=== PATIENT | female | born 1950 | race Caucasian/White ===

== ENCOUNTER → 2017-02-11 | Outpatient (CLI) | payer MEDICARE ==
[~2017-02-11] MED LIST: ACHYD1T PO; DESV100T PO; THYR15TA PO
--- NOTE | 2017-02-11 16:07 | Diagnostic Imaging Report ---
INDICATION: Cough x1 month. FINDINGS: There is mild discoid atelectasis along the left lung base. There are no infiltrates or masses. The heart is not enlarged. There is no hilar adenopathy. There is no pulmonary edema. No pneumothorax or pleural effusions. IMPRESSION: 1. Mild discoid atelectasis in left lung base. The chest otherwise appears normal. Dictated by: Dictated on workstation # [id number]
== END ==
LOC: RAD 15:39
PROVIDERS: ATTEND Internal Medicine
DX: J98.11 Atelectasis (principal)
CPT/HCPCS: 71020

== ENCOUNTER 2019-04-02 09:26 | Emergency (ER) | payer MEDICARE, OTHER ==
[~2019-04-02] VITALS: Ht 162.6 cm; Wt 98.9 kg
--- OUTSIDE RECORDS SUMMARY | 2019-04-02 09:31 | XMS REPORT | Clinical Summary ---
Author Author User, [employer] Organization Farheen Kurtz DO, FACP Address Unknown Phone Allergies, Adverse Reactions, Alerts Allergy Name Reaction Description Start Date Severity Status Provider PENICILLIN Critical Active Farheen Kurtz SULFA Critical Active Farheen Kurtz Conditions or Problems Problem Name Problem Code Onset Date Status Entry Date Provider Comment Standard Description Annotate LYMPHEDEMA, SEVERE 457.1 Active Farheen Kurtz Other lymphedema HYPERGLYCEMIA, MILD 790.6 Correction Farheen Kurtz Other abnormal blood chemistry DIABETES MELLITUS, NONINSULIN DEPENDENT (NIDDM) 250.02 Active Farheen Kurtz Diabetes mellitus without mention of complication, type II or unspecified type, uncontrolled POLYARTHRALGIA 719.49 Resolved Farheen Kurtz Pain in joint involving multiple sites HYPOTHYROIDISM, PRIMARY 244.9 Active Farheen Kurtz Unspecified hypothyroidism ANEMIA NOS 285.9 Resolved Farheen Kurtz Anemia, unspecified UNSPECIFIED VITAMIN D DEFICIENCY 268.9 Active Farheen Kurtz Unspecified vitamin D deficiency MENOPAUSAL SYNDROME 627.0 Active Farheen Kurtz Premenopausal menorrhagia HYPERTRIGLYCERIDEMIA 272.1 Active Farheen Kurtz Pure hyperglyceridemia NEOPLASM, SKIN, UNCERTAIN BEHAVIOR 238.2 Resolved Farheen Kurtz Neoplasm of uncertain behavior of skin WELL WOMAN V70.0 Resolved Farheen Kurtz Routine general medical examination at a health care facility CANDIDIASIS OF UNSPECIFIED SITE 112.9 Resolved Farheen Kurtz Candidiasis of unspecified site VAGINAL DISCHARGE 623.5 Resolved Farheen Kurtz Leukorrhea, not specified as infective LEG PAIN, LEFT 729.5 Resolved Farheen Kurtz Pain in limb HYPERTENSION 401.1 Active Farheen Kurtz Benign essential hypertension HEALTH SCREENING V70.0 Resolved Farheen Kurtz Routine general medical examination at a health care facility DEPRESSION, ACUTE, RECURRENT 296.33 Active Farheen Kurtz Major depressive disorder, recurrent episode, severe degree, without mention of psychotic behavior ANXIETY 300.00 Active Farheen Kurtz Anxiety state, unspecified DYSPHAGIA, PHARYNGOESOPHAGEAL PHASE 787.24 Active Farheen Kurtz Dysphagia, pharyngoesophageal phase WELL WOMAN V70.0 Active Farheen Kurtz Routine general medical examination at a health care facility Medication List Medication Instructions Start Date Stop Date Generic Name NDC Status Provider Patient Instruction WELLBUTRIN SR 100 MG [id number] 1 PO BID BUPROPION HCL 11243638615 No Longer Active Farheen Kurtz NORVASC 5 MG TAB 1 PO QD AMLODIPINE BESYLATE 80303930307 Active Aiyana Minor COZAAR 100 MG TAB 1 PO daily [place] POTASSIUM 29659895565 Active Aiyana Minor CYTOMEL 25 MCG TABS 1 PO BID LIOTHYRONINE SODIUM 89619140768 No Longer Active Farheen Kurtz SYNTHROID 0.025 MG TAB 1 PO daily LEVOTHYROXINE SODIUM 40743193297 Active Aiyana Minor LISINOPRIL 20 MG TABS 1 PO daily LISINOPRIL 76492692208 No Longer Active Farheen Kurtz PREMARIN 0.625 MG/GM CREA apply 2 inch ribbon to outside of vagina BID ESTROGENS, CONJUGATED VAGINAL 08829367408 No Longer Active Farheen Kurtz CLOBETASOL PROPIONATE 0.05 % CREA apply 2 inch ribbon to affected area BID for 2 weeks CLOBETASOL PROPIONATE 73313313721 No Longer Active Farheen Kurtz NYSTATIN 636674 UNIT/GM POWD apply to affected area over cream BID for 7 days NYSTATIN 19304428739 No Longer Active Farheen Kurtz NYSTATIN 700963 UNIT/GM CREA apply to affected area BID for 7 days NYSTATIN 77114104586 No Longer Active Farheen Kurtz PRISTIQ 100 MG [id number] 1 po daily DESVENLAFAXINE SUCCINATE 19633998129 Active Aiyana Minor HYDROCHLOROTHIAZIDE 25 MG TABS 1 po daily HYDROCHLOROTHIAZIDE 58658857029 No Longer Active Farheen Kurtz VITAMIN D 1000 UNIT TABS 1 PO daily CHOLECALCIFEROL 23321789582 Active Farheen Kurtz Vital Signs Date Name Value Unit Range Description blood pressure, diastolic - 8462-4 82 mm[Hg] BP saba blood pressure, systolic - 8480-6 140 mm[Hg] BP sys pulse rate E&M - 8867-4 66 /min Heart rate respiratory rate E&M - 9279-1 14 /min Resp rate temperature E&M 97.6 [degF] Body temperature weight E&M - 3141-9 239 [lb_av] Weight Measured blood pressure, diastolic - 8462-4 80 mm[Hg] BP saba blood pressure, systolic - 8480-6 135 mm[Hg] BP sys pulse rate E&M - 8867-4 84 /min Heart rate respiratory rate E&M - 9279-1 14 /min Resp rate temperature E&M 98.6 [degF] Body temperature weight E&M - 3141-9 225 [lb_av] Weight Measured blood pressure, diastolic - 8462-4 80 mm[Hg] BP saba blood pressure, systolic - 8480-6 130 mm[Hg] BP sys pulse rate E&M - 8867-4 80 /min Heart rate respiratory rate E&M - 9279-1 14 /min Resp rate temperature E&M 98.6 [degF] Body temperature weight E&M - 3141-9 235 [lb_av] Weight Measured blood pressure, diastolic - 8462-4 102 mm[Hg] BP saba blood pressure, systolic - 8480-6 178 mm[Hg] BP sys pulse rate E&M - 8867-4 78 /min Heart rate respiratory rate E&M - 9279-1 14 /min Resp rate weight E&M - 3141-9 236 [lb_av] Weight Measured Diagnostic Results Date Name Value Unit Range Description Clinical Lists Update: CBC,CMP,Chol,Trig,TSH,Free T4 - Chemistry Estimated Glomerular Filtration Rate (calc) >60 mL/min/1.73m2 thyroid stimulating hormone, serum 2.71 u[iU]/mL glucose, plasma fasting 136 mg/dL alkaline phosphatase, serum 113 U/L sodium, serum 139 mmol/L urea nitrogen, blood 19 mg/dL triglyceride, serum, fasting 110 mg/dL calcium, serum 9.1 mg/dL bilirubin, serum, total 0.4 mg/dL chloride, serum 104 mmol/L alanine aminotransferase (SGPT), serum 48 U/L cholesterol, serum 193 mg/dL aspartate aminotransferase (SGOT), serum 21 U/L carbon dioxide, venous blood 31 mmol/L protein, total, serum 7.4 g/dL creatinine, serum 0.93 mg/dL potassium, serum 4.3 mmol/L thyroxine, serum, free 0.63 ng/dL albumin, serum 3.4 g/dL Clinical Lists Update: CBC,CMP,Chol,Trig,TSH,Free T4 - Hematology hemoglobin, blood 13.3 g/dL hematocrit, blood 40.6 % platelet count 314 10*3/mm3 erythrocyte (RBC) count 4.31 10*6/mm3 leukocyte count, blood 6.6 10*3/mm3 mean corpuscular volume, RBC 94.2 fL red blood cell distribution width 13.1 % Clinical Lists Update: CMP,TSH,Free T4,HgA1c,FLP - Chemistry protein, total, serum 7.6 g/dL LDL cholesterol, serum 119 mg/dL aspartate aminotransferase (SGOT), serum 23 U/L carbon dioxide, venous blood 31 mmol/L alanine aminotransferase (SGPT), serum 58 U/L cholesterol, serum 202 mg/dL bilirubin, serum, total 0.5 mg/dL chloride, serum 104 mmol/L triglyceride, serum, fasting 163 mg/dL calcium, serum 9.0 mg/dL sodium, serum 137 mmol/L urea nitrogen, blood 18 mg/dL glucose, plasma fasting 120 mg/dL alkaline phosphatase, serum 122 U/L Estimated Glomerular Filtration Rate (calc) >60 mL/min/1.73m2 albumin, serum 3.6 g/dL thyroxine, serum, free 0.74 ng/dL potassium, serum 4.1 mmol/L HDL cholesterol, serum 50 mg/dL hemoglobin A1C, blood, as % of total hemoglobin 6.3 % creatinine, serum 0.76 mg/dL thyroid stimulating hormone, serum 2.93 u[iU]/mL Clinical Lists Update: HgA1c - Chemistry hemoglobin A1C, blood, as % of total hemoglobin 6.6 % Encounters Code Encounter Date Provider Facility CPT-16313 Ofc Vst, Est Level IV 15:08:22 CDT Farheenvinh Kurtz DO, FACP CPT-89786 Ofc Vst, Est Level IV 16:43:03 CDT Farheenvinh Kurtz [facility] CPT-62938 Ofc Vst, Est Level IV 14:41:55 CDT Farheenvinh Kurtz DO, FACP CPT-45560 Ofc Vst, Est Level III 14:56:19 CDT Farheenvinh Kurtz DO, FACP CPT-64233 Ofc Vst, Est Level IV 10:33:24 CDT Farheenvinh Kurtz DO, FACP CPT-36820 Ofc Vst, Est Level III 15:54:09 CDT Farheenvinh Kurtz [facility] CPT-47212 Ofc Vst, Est Level III 14:27:53 CDT Farheenivnh Kurtz DO, FACP CPT-53524 Ofc Vst, Est Level III 15:17:49 CDT Farheen Kurtz DO, FACP CPT-31832 Ofc Vst, Est Level III 13:46:33 CDT Farheenvinh Kurtz [facility] CPT-58133 Ofc Vst, Est Level IV 11:31:14 SENIOR LOAN PROCESSOR Farheenvinh Kurtz DO, FACP CPT-74000 Ofc Vst, New Level IV 10:54:03 SENIOR LOAN PROCESSOR Farheen Kurtz DO, FACP Procedures Code Procedure Name Date Entry Date Standard Description CPT-87316 Preventive, Est, (40-64) 15:32:51 CDT CPT-40414 Preventive, Est, (40-64) 20:59:28 CDT CPT-92283 Preventive, Est, (40-64) 11:45:08 SENIOR LOAN PROCESSOR CPT-35092 Handling of specimen from office to lab 10:08:59 SENIOR LOAN PROCESSOR CPT-01772 Preventive, Est, (40-64) 10:08:59 SENIOR LOAN PROCESSOR
--- OUTSIDE RECORDS SUMMARY | 2019-04-02 09:31 | XMS REPORT | Clinical Summary ---
Author Author User, [employer] Organization Farheen Kurtz DO, FACP Address Unknown [...] Provider Patient Instruction WELLBUTRIN SR 100 MG [id number] 1 PO BID BUPROPION HCL 55814902967 No Longer Active Farheen Kurtz NORVASC 5 MG TAB 1 PO QD AMLODIPINE BESYLATE 36241350740 Active Aiyana Minor COZAAR 100 MG TAB 1 PO daily [place] POTASSIUM 74826177798 Active Aiyana Minor CYTOMEL 25 MCG TABS 1 PO BID LIOTHYRONINE SODIUM 87108404164 No Longer Active Farheen Kurtz SYNTHROID 0.025 MG TAB 1 PO daily LEVOTHYROXINE SODIUM 86509431507 Active Aiyana Minor LISINOPRIL 20 MG TABS 1 PO daily LISINOPRIL 04518514979 No Longer Active Farheen Kurtz PREMARIN 0.625 MG/GM CREA apply 2 inch ribbon to outside of vagina BID ESTROGENS, CONJUGATED VAGINAL 02299752552 No Longer Active Farheen Kurtz CLOBETASOL PROPIONATE 0.05 % CREA apply 2 inch ribbon to affected area BID for 2 weeks CLOBETASOL PROPIONATE 37402623194 No Longer Active Farheen Kurtz NYSTATIN 197935 UNIT/GM POWD apply to affected area over cream BID for 7 days NYSTATIN 20944538891 No Longer Active Farheen Kurtz NYSTATIN 577788 UNIT/GM CREA apply to affected area BID for 7 days NYSTATIN 02536365704 No Longer Active Farheen Kurtz PRISTIQ 100 MG [id number] 1 po daily DESVENLAFAXINE SUCCINATE 84131980540 Active Aiyana Minor HYDROCHLOROTHIAZIDE 25 MG TABS 1 po daily HYDROCHLOROTHIAZIDE 48086680428 No Longer Active Farheen Kurtz VITAMIN D 1000 UNIT TABS 1 PO daily CHOLECALCIFEROL 96379009806 Active Farheen Kurtz Vital Signs Date Name [...] % Encounters Code Encounter Date Provider Facility CPT-52406 Ofc Vst, Est Level IV 15:08:22 CDT Farheenvinh Kurtz DO, FACP CPT-82402 Ofc Vst, Est Level IV 16:43:03 CDT Farheenvinh Kurtz [facility] CPT-12670 Ofc Vst, Est Level IV 14:41:55 CDT Farheenvinh Kurtz DO, FACP CPT-62924 Ofc Vst, Est Level III 14:56:19 CDT Farheenvinh Kurtz DO, FACP CPT-34292 Ofc Vst, Est Level IV 10:33:24 CDT Farheenvinh Kurtz DO, FACP CPT-67337 Ofc Vst, Est Level III 15:54:09 CDT Farheenvinh Kurtz [facility] CPT-36875 Ofc Vst, Est Level III 14:27:53 CDT Farheenvinh Kutrz DO, FACP CPT-36750 Ofc Vst, Est Level III 15:17:49 CDT Farheen Kurtz DO, FACP CPT-25683 Ofc Vst, Est Level III 13:46:33 CDT Farheenvinh Kurtz [facility] CPT-53053 Ofc Vst, Est Level IV 11:31:14 MANAGER OF TRAINING AND DEVELOPMENT Farheenvinh Kurtz DO, FACP CPT-66078 Ofc Vst, New Level IV 10:54:03 MANAGER OF TRAINING AND DEVELOPMENT Farheen Kurtz DO, FACP Procedures Code Procedure Name Date Entry Date Standard Description CPT-51655 Preventive, Est, (40-64) 15:32:51 CDT CPT-68305 Preventive, Est, (40-64) 20:59:28 CDT CPT-34563 Preventive, Est, (40-64) 11:45:08 MANAGER OF TRAINING AND DEVELOPMENT CPT-00710 Handling of specimen from office to lab 10:08:59 MANAGER OF TRAINING AND DEVELOPMENT CPT-33439 Preventive, Est, (40-64) 10:08:59 MANAGER OF TRAINING AND DEVELOPMENT
--- OUTSIDE RECORDS SUMMARY | 2019-04-02 09:31 | XMS REPORT | Clinical Summary ---
Author Author User, [employer] Organization Farheen Kurtz DO, FACP Address Unknown [...] Provider Patient Instruction WELLBUTRIN SR 100 MG [id number] 1 PO BID BUPROPION HCL 06618950819 No Longer Active Farheen Kurtz NORVASC 5 MG TAB 1 PO QD AMLODIPINE BESYLATE 94894407584 Active Aiyana Minor COZAAR 100 MG TAB 1 PO daily [place] POTASSIUM 22913521920 Active Aiyana Minor CYTOMEL 25 MCG TABS 1 PO BID LIOTHYRONINE SODIUM 71577104250 No Longer Active Farheen Kurtz SYNTHROID 0.025 MG TAB 1 PO daily LEVOTHYROXINE SODIUM 52107381423 Active Aiyana Minor LISINOPRIL 20 MG TABS 1 PO daily LISINOPRIL 35334312028 No Longer Active Farheen Kurtz PREMARIN 0.625 MG/GM CREA apply 2 inch ribbon to outside of vagina BID ESTROGENS, CONJUGATED VAGINAL 80958585410 No Longer Active Farheen Kurtz CLOBETASOL PROPIONATE 0.05 % CREA apply 2 inch ribbon to affected area BID for 2 weeks CLOBETASOL PROPIONATE 71958790111 No Longer Active Farheen Kurtz NYSTATIN 982195 UNIT/GM POWD apply to affected area over cream BID for 7 days NYSTATIN 59753453602 No Longer Active Farheen Kurtz NYSTATIN 612261 UNIT/GM CREA apply to affected area BID for 7 days NYSTATIN 21843758458 No Longer Active Farheen Kurtz PRISTIQ 100 MG [id number] 1 po daily DESVENLAFAXINE SUCCINATE 94123951421 Active Aiyana Minor HYDROCHLOROTHIAZIDE 25 MG TABS 1 po daily HYDROCHLOROTHIAZIDE 07011411826 No Longer Active Farheen Kurtz VITAMIN D 1000 UNIT TABS 1 PO daily CHOLECALCIFEROL 84979789721 Active Farheen Kurtz Vital Signs Date Name [...] % Encounters Code Encounter Date Provider Facility CPT-82060 Ofc Vst, Est Level IV 15:08:22 CDT Farheenvinh Kurtz DO, FACP CPT-47826 Ofc Vst, Est Level IV 16:43:03 CDT Farheenvinh Kurtz [facility] CPT-52035 Ofc Vst, Est Level IV 14:41:55 CDT Farheenvinh Kurtz DO, FACP CPT-11798 Ofc Vst, Est Level III 14:56:19 CDT Farheenvinh Kurtz DO, FACP CPT-88330 Ofc Vst, Est Level IV 10:33:24 CDT Farheenvinh Kurtz DO, FACP CPT-12000 Ofc Vst, Est Level III 15:54:09 CDT Farheenvinh Kurtz [facility] CPT-60514 Ofc Vst, Est Level III 14:27:53 CDT Farheenvinh Kurtz DO, FACP CPT-73328 Ofc Vst, Est Level III 15:17:49 CDT Farheen Kurtz DO, FACP CPT-91706 Ofc Vst, Est Level III 13:46:33 CDT Farheenvinh Kurtz [facility] CPT-60617 Ofc Vst, Est Level IV 11:31:14 OPTOMETRIC TECHNOLOGIST Farheenvinh Kurtz DO, FACP CPT-25075 Ofc Vst, New Level IV 10:54:03 OPTOMETRIC TECHNOLOGIST Farheen Kurtz DO, FACP Procedures Code Procedure Name Date Entry Date Standard Description CPT-36279 Preventive, Est, (40-64) 15:32:51 CDT CPT-82196 Preventive, Est, (40-64) 20:59:28 CDT CPT-49690 Preventive, Est, (40-64) 11:45:08 OPTOMETRIC TECHNOLOGIST CPT-51856 Handling of specimen from office to lab 10:08:59 OPTOMETRIC TECHNOLOGIST CPT-61361 Preventive, Est, (40-64) 10:08:59 OPTOMETRIC TECHNOLOGIST
--- OUTSIDE RECORDS SUMMARY | 2019-04-02 09:32 | XMS REPORT | Clinical Summary ---
Author Author User, [employer] Organization Farheen Kurtz DO, FACP Address Unknown [...] Provider Patient Instruction WELLBUTRIN SR 100 MG [id number] 1 PO BID BUPROPION HCL 08267314525 No Longer Active Farheen Kurtz NORVASC 5 MG TAB 1 PO QD AMLODIPINE BESYLATE 43729283865 Active Aiyana Minor COZAAR 100 MG TAB 1 PO daily [place] POTASSIUM 48010350624 Active Aiyana Minor CYTOMEL 25 MCG TABS 1 PO BID LIOTHYRONINE SODIUM 57781918815 No Longer Active Farheen Kurtz SYNTHROID 0.025 MG TAB 1 PO daily LEVOTHYROXINE SODIUM 40405954689 Active Aiyana Minor LISINOPRIL 20 MG TABS 1 PO daily LISINOPRIL 39753935227 No Longer Active Farheen Kurtz PREMARIN 0.625 MG/GM CREA apply 2 inch ribbon to outside of vagina BID ESTROGENS, CONJUGATED VAGINAL 99790116958 No Longer Active Farheen Kurtz CLOBETASOL PROPIONATE 0.05 % CREA apply 2 inch ribbon to affected area BID for 2 weeks CLOBETASOL PROPIONATE 27379611471 No Longer Active Farheen Kurtz NYSTATIN 644209 UNIT/GM POWD apply to affected area over cream BID for 7 days NYSTATIN 72107631473 No Longer Active Farheen Kurtz NYSTATIN 661418 UNIT/GM CREA apply to affected area BID for 7 days NYSTATIN 67297888645 No Longer Active Farheen Kurtz PRISTIQ 100 MG [id number] 1 po daily DESVENLAFAXINE SUCCINATE 59706108315 Active Aiyana Minor HYDROCHLOROTHIAZIDE 25 MG TABS 1 po daily HYDROCHLOROTHIAZIDE 08576582495 No Longer Active Farheen Kurtz VITAMIN D 1000 UNIT TABS 1 PO daily CHOLECALCIFEROL 24206116914 Active Farheen Kurtz Vital Signs Date Name [...] % Encounters Code Encounter Date Provider Facility CPT-25592 Ofc Vst, Est Level IV 15:08:22 CDT Farheenvinh Kurtz DO, FACP CPT-38045 Ofc Vst, Est Level IV 16:43:03 CDT Farheenvinh Kurtz [facility] CPT-47273 Ofc Vst, Est Level IV 14:41:55 CDT Farheenvinh Kurtz DO, FACP CPT-94471 Ofc Vst, Est Level III 14:56:19 CDT Farheenvinh Kurtz DO, FACP CPT-08731 Ofc Vst, Est Level IV 10:33:24 CDT Farheenvinh Kurtz DO, FACP CPT-41278 Ofc Vst, Est Level III 15:54:09 CDT Farheenvinh Kurtz [place] [facility] CPT-02854 Ofc Vst, Est Level III 14:27:53 CDT Farheenvinh Kurtz DO, FACP CPT-17523 Ofc Vst, Est Level III 15:17:49 CDT Farheen Kurtz DO, FACP CPT-96686 Ofc Vst, Est Level III 13:46:33 CDT Farheenvinh Kurtz [facility] CPT-10873 Ofc Vst, Est Level IV 11:31:14 MEDIA SALES EXECUTIVE Farheenvinh Kurtz DO, FACP CPT-40999 Ofc Vst, New Level IV 10:54:03 MEDIA SALES EXECUTIVE Farheen Kurtz DO, FACP Procedures Code Procedure Name Date Entry Date Standard Description CPT-92022 Preventive, Est, (40-64) 15:32:51 CDT CPT-45405 Preventive, Est, (40-64) 20:59:28 CDT CPT-43247 Preventive, Est, (40-64) 11:45:08 MEDIA SALES EXECUTIVE CPT-67372 Handling of specimen from office to lab 10:08:59 MEDIA SALES EXECUTIVE CPT-89827 Preventive, Est, (40-64) 10:08:59 MEDIA SALES EXECUTIVE
--- OUTSIDE RECORDS SUMMARY | 2019-04-02 09:32 | XMS REPORT | Clinical Summary ---
Author Author User, [employer] Organization Farheen Kurtz DO, FACP Address Unknown [...] Provider Patient Instruction WELLBUTRIN SR 100 MG [id number] 1 PO BID BUPROPION HCL 98482032892 No Longer Active Farheen Kurtz NORVASC 5 MG TAB 1 PO QD AMLODIPINE BESYLATE 80225016684 Active Aiyana Minor COZAAR 100 MG TAB 1 PO daily [place] POTASSIUM 02332720132 Active Aiyana Minor CYTOMEL 25 MCG TABS 1 PO BID LIOTHYRONINE SODIUM 05096640007 No Longer Active Farheen Kurtz SYNTHROID 0.025 MG TAB 1 PO daily LEVOTHYROXINE SODIUM 77315662021 Active iAyana Minor LISINOPRIL 20 MG TABS 1 PO daily LISINOPRIL 85562412345 No Longer Active Farheen Kurtz PREMARIN 0.625 MG/GM CREA apply 2 inch ribbon to outside of vagina BID ESTROGENS, CONJUGATED VAGINAL 56509648210 No Longer Active Farheen Kurtz CLOBETASOL PROPIONATE 0.05 % CREA apply 2 inch ribbon to affected area BID for 2 weeks CLOBETASOL PROPIONATE 49566513490 No Longer Active Farheen Kurtz NYSTATIN 277531 UNIT/GM POWD apply to affected area over cream BID for 7 days NYSTATIN 76162598384 No Longer Active Farheen Kurtz NYSTATIN 341536 UNIT/GM CREA apply to affected area BID for 7 days NYSTATIN 13269293466 No Longer Active Farheen Kurtz PRISTIQ 100 MG [id number] 1 po daily DESVENLAFAXINE SUCCINATE 53295661226 Active Aiyana Minor HYDROCHLOROTHIAZIDE 25 MG TABS 1 po daily HYDROCHLOROTHIAZIDE 26508425335 No Longer Active Farheen Kurtz VITAMIN D 1000 UNIT TABS 1 PO daily CHOLECALCIFEROL 65489041292 Active Farheen Kurtz Vital Signs Date Name [...] % Encounters Code Encounter Date Provider Facility CPT-07698 Ofc Vst, Est Level IV 15:08:22 CDT Farheenvinh Kurtz DO, FACP CPT-38279 Ofc Vst, Est Level IV 16:43:03 CDT Farheenvinh Kurtz [facility] CPT-02965 Ofc Vst, Est Level IV 14:41:55 CDT Farheenvinh Kurtz DO, FACP CPT-25914 Ofc Vst, Est Level III 14:56:19 CDT Farheenvinh Kurtz DO, FACP CPT-68145 Ofc Vst, Est Level IV 10:33:24 CDT Farheenvinh Kurtz DO, FACP CPT-73642 Ofc Vst, Est Level III 15:54:09 CDT Farheenvinh Kurtz [facility] [place] [facility] CPT-41332 Ofc Vst, Est Level III 14:27:53 CDT Farheenvinh Kurtz DO, FACP CPT-63453 Ofc Vst, Est Level III 15:17:49 CDT Farheen Kurtz DO, FACP CPT-18608 Ofc Vst, Est Level III 13:46:33 CDT Farheenvinh Kurtz [facility] CPT-53758 Ofc Vst, Est Level IV 11:31:14 LOAN AND CREDIT MANAGER Farheenvinh Kurtz DO, FACP CPT-41411 Ofc Vst, New Level IV 10:54:03 LOAN AND CREDIT MANAGER Farheen Kurtz DO, FACP Procedures Code Procedure Name Date Entry Date Standard Description CPT-83186 Preventive, Est, (40-64) 15:32:51 CDT CPT-37033 Preventive, Est, (40-64) 20:59:28 CDT CPT-60834 Preventive, Est, (40-64) 11:45:08 LOAN AND CREDIT MANAGER CPT-32845 Handling of specimen from office to lab 10:08:59 LOAN AND CREDIT MANAGER CPT-03152 Preventive, Est, (40-64) 10:08:59 LOAN AND CREDIT MANAGER
--- OUTSIDE RECORDS SUMMARY | 2019-04-02 09:32 | XMS REPORT | Clinical Summary ---
Author Author User, [employer] Organization Farheen Kurtz DO, FACP Address Unknown [...] Kurtz Premenopausal menorrhagia HYPERTRIGLYCERIDEMIA 272.1 Active Farheen uKrtz Pure hyperglyceridemia NEOPLASM, SKIN, UNCERTAIN BEHAVIOR 238.2 [...] Provider Patient Instruction WELLBUTRIN SR 100 MG [id number] 1 PO BID BUPROPION HCL 38269491244 No Longer Active Farheen Kurtz NORVASC 5 MG TAB 1 PO QD AMLODIPINE BESYLATE 95205299060 Active Aiyana Minor COZAAR 100 MG TAB 1 PO daily [place] POTASSIUM 50199372422 Active Aiyana Minor CYTOMEL 25 MCG TABS 1 PO BID LIOTHYRONINE SODIUM 40574852333 No Longer Active Farheen Kurtz SYNTHROID 0.025 MG TAB 1 PO daily LEVOTHYROXINE SODIUM 00629742852 Active Aiyana Minor LISINOPRIL 20 MG TABS 1 PO daily LISINOPRIL 89505623125 No Longer Active Farheen Kurtz PREMARIN 0.625 MG/GM CREA apply 2 inch ribbon to outside of vagina BID ESTROGENS, CONJUGATED VAGINAL 29785638090 No Longer Active Farheen Kurtz CLOBETASOL PROPIONATE 0.05 % CREA apply 2 inch ribbon to affected area BID for 2 weeks CLOBETASOL PROPIONATE 56067257532 No Longer Active Farheen Kurtz NYSTATIN 470690 UNIT/GM POWD apply to affected area over cream BID for 7 days NYSTATIN 19381243096 No Longer Active Farheen Kurtz NYSTATIN 926091 UNIT/GM CREA apply to affected area BID for 7 days NYSTATIN 98846291107 No Longer Active Farheen Kurtz PRISTIQ 100 MG [id number] 1 po daily DESVENLAFAXINE SUCCINATE 65013720657 Active Aiyana Minor HYDROCHLOROTHIAZIDE 25 MG TABS 1 po daily HYDROCHLOROTHIAZIDE 81228858933 No Longer Active Farheen Kurtz VITAMIN D 1000 UNIT TABS 1 PO daily CHOLECALCIFEROL 64599130564 Active Farheen Kurtz Vital Signs Date Name [...] % Encounters Code Encounter Date Provider Facility CPT-42031 Ofc Vst, Est Level IV 15:08:22 CDT Farheenvinh Kurtz DO, FACP CPT-05276 Ofc Vst, Est Level IV 16:43:03 CDT Farheenvinh Kurtz [facility] CPT-62229 Ofc Vst, Est Level IV 14:41:55 CDT Farheenvinh Kurtz DO, FACP CPT-47856 Ofc Vst, Est Level III 14:56:19 CDT Farheenvinh Kurtz DO, FACP CPT-57272 Ofc Vst, Est Level IV 10:33:24 CDT Farheenvinh Kurtz DO, FACP CPT-73245 Ofc Vst, Est Level III 15:54:09 CDT Farheenvinh Kurtz [place] [facility] CPT-18130 Ofc Vst, Est Level III 14:27:53 CDT Farheenvinh Kurtz DO, FACP CPT-97817 Ofc Vst, Est Level III 15:17:49 CDT Farheen Kurtz DO, FACP CPT-01576 Ofc Vst, Est Level III 13:46:33 CDT Farheenvinh Kurtz [facility] CPT-01487 Ofc Vst, Est Level IV 11:31:14 FINANCIAL HEALTH COUNSELOR Farheenvinh Kurtz DO, FACP CPT-85066 Ofc Vst, New Level IV 10:54:03 FINANCIAL HEALTH COUNSELOR Farheen Kurtz DO, FACP Procedures Code Procedure Name Date Entry Date Standard Description CPT-34545 Preventive, Est, (40-64) 15:32:51 CDT CPT-59740 Preventive, Est, (40-64) 20:59:28 CDT CPT-10846 Preventive, Est, (40-64) 11:45:08 FINANCIAL HEALTH COUNSELOR CPT-60933 Handling of specimen from office to lab 10:08:59 FINANCIAL HEALTH COUNSELOR CPT-74479 Preventive, Est, (40-64) 10:08:59 FINANCIAL HEALTH COUNSELOR
--- OUTSIDE RECORDS SUMMARY | 2019-04-02 09:32 | XMS REPORT | Clinical Summary ---
Author Author User, [employer] Organization Farheen Kurtz DO, FACP Address Unknown [...] Farheen Kurtz Premenopausal menorrhagia HYPERTRIGLYCERIDEMIA 272.1 Active Farhene Kurtz Pure hyperglyceridemia NEOPLASM, SKIN, UNCERTAIN BEHAVIOR [...] Provider Patient Instruction WELLBUTRIN SR 100 MG [id number] 1 PO BID BUPROPION HCL 65061534741 No Longer Active Farheen Kurtz NORVASC 5 MG TAB 1 PO QD AMLODIPINE BESYLATE 67748637171 Active Aiyana Minor COZAAR 100 MG TAB 1 PO daily LOSARTAN POTASSIUM 96657339678 Active Aiyana Minor CYTOMEL 25 MCG TABS 1 PO BID LIOTHYRONINE SODIUM 65028887693 No Longer Active Farheen Kurtz SYNTHROID 0.025 MG TAB 1 PO daily LEVOTHYROXINE SODIUM 44424214412 Active Aiyana Minor LISINOPRIL 20 MG TABS 1 PO daily LISINOPRIL 46555468860 No Longer Active Farheen Kurtz PREMARIN 0.625 MG/GM CREA apply 2 inch ribbon to outside of vagina BID ESTROGENS, CONJUGATED VAGINAL 93081975676 No Longer Active Farheen Kurtz CLOBETASOL PROPIONATE 0.05 % CREA apply 2 inch ribbon to affected area BID for 2 weeks CLOBETASOL PROPIONATE 85156635633 No Longer Active Farheen Kurtz NYSTATIN 381218 UNIT/GM POWD apply to affected area over cream BID for 7 days NYSTATIN 78119872559 No Longer Active Farheen Kurtz NYSTATIN 322737 UNIT/GM CREA apply to affected area BID for 7 days NYSTATIN 42940726208 No Longer Active Farheen Kurtz PRISTIQ 100 MG [id number] 1 po daily DESVENLAFAXINE SUCCINATE 03250018672 Active Aiyana Minor HYDROCHLOROTHIAZIDE 25 MG TABS 1 po daily HYDROCHLOROTHIAZIDE 26461381906 No Longer Active Farheen Kurtz VITAMIN D 1000 UNIT TABS 1 PO daily CHOLECALCIFEROL 83013266875 Active Farheen Kurtz Vital Signs Date Name [...] % Encounters Code Encounter Date Provider Facility CPT-10748 Ofc Vst, Est Level IV 15:08:22 CDT Farheenvinh Kurtz DO, FACP CPT-28509 Ofc Vst, Est Level IV 16:43:03 CDT Far[facility]envinh [facility] CPT-72098 Ofc Vst, Est Level IV 14:41:55 CDT Farheenvinh Kurtz DO, FACP CPT-07024 Ofc Vst, Est Level III 14:56:19 CDT Farheenvinh Kurtz DO, FACP CPT-69853 Ofc Vst, Est Level IV 10:33:24 CDT Farheenvinh Kurtz DO, FACP CPT-12896 Ofc Vst, Est Level III 15:54:09 CDT Farheenvinh Kurtz [place] [facility] CPT-44610 Ofc Vst, Est Level III 14:27:53 CDT Farheenvinh Kurtz DO, FACP CPT-66098 Ofc Vst, Est Level III 15:17:49 CDT Farheen Kurtz DO, FACP CPT-38585 Ofc Vst, Est Level III 13:46:33 CDT Far[facility]envinh [facility] CPT-69268 Ofc Vst, Est Level IV 11:31:14 SERVICE STATION C[employer]IER Farheenvinh Kurtz DO, FACP CPT-65386 Ofc Vst, New Level IV 10:54:03 SERVICE STATION CASHIER Farheen Kurtz DO, FACP Procedures Code Procedure Name Date Entry Date Standard Description CPT-30447 Preventive, Est, (40-64) 15:32:51 CDT CPT-45542 Preventive, Est, (40-64) 20:59:28 CDT CPT-33474 Preventive, Est, (40-64) 11:45:08 SERVICE STATION CASHIER CPT-28942 Handling of specimen from office to lab 10:08:59 SERVICE STATION CASHIER CPT-06780 Preventive, Est, (40-64) 10:08:59 SERVICE STATION CASHIER
--- OUTSIDE RECORDS SUMMARY | 2019-04-02 09:33 | XMS REPORT | Clinical Summary ---
Author Author User, [employer] Organization Farheen Kurtz DO, FACP Address Unknown [...] Provider Patient Instruction WELLBUTRIN SR 100 MG [id number] 1 PO BID BUPROPION HCL 40551381684 No Longer Active Farheen Kurtz NORVASC 5 MG TAB 1 PO QD AMLODIPINE BESYLATE 32548991752 Active Aiyana Minor COZAAR 100 MG TAB 1 PO daily LOSARTAN POTASSIUM 34085602487 Active Aiyana Minor CYTOMEL 25 MCG TABS 1 PO BID LIOTHYRONINE SODIUM 41189298371 No Longer Active Farheen Kurtz SYNTHROID 0.025 MG TAB 1 PO daily LEVOTHYROXINE SODIUM 76974826521 Active Aiyana Minor LISINOPRIL 20 MG TABS 1 PO daily LISINOPRIL 20602470662 No Longer Active Farheen Kurtz PREMARIN 0.625 MG/GM CREA apply 2 inch ribbon to outside of vagina BID ESTROGENS, CONJUGATED VAGINAL 70374249875 No Longer Active Farheen Kurtz CLOBETASOL PROPIONATE 0.05 % CREA apply 2 inch ribbon to affected area BID for 2 weeks CLOBETASOL PROPIONATE 07049616546 No Longer Active Farheen Kurtz NYSTATIN 986197 UNIT/GM POWD apply to affected area over cream BID for 7 days NYSTATIN 05538522710 No Longer Active Farheen Kurtz NYSTATIN 675402 UNIT/GM CREA apply to affected area BID for 7 days NYSTATIN 36433012034 No Longer Active Farheen Kurtz PRISTIQ 100 MG [id number] 1 po daily DESVENLAFAXINE SUCCINATE 35844153468 Active Aiyana Minor HYDROCHLOROTHIAZIDE 25 MG TABS 1 po daily HYDROCHLOROTHIAZIDE 09634460029 No Longer Active Farheen Kurtz VITAMIN D 1000 UNIT TABS 1 PO daily CHOLECALCIFEROL 38734795487 Active Farheen Kurtz Vital Signs Date Name [...] % Encounters Code Encounter Date Provider Facility CPT-02882 Ofc Vst, Est Level IV 15:08:22 CDT Farheenvinh Kurtz DO, FACP CPT-38703 Ofc Vst, Est Level IV 16:43:03 CDT [facility]vinh [facility] CPT-37379 Ofc Vst, Est Level IV 14:41:55 CDT Farheenvinh Kurtz DO, FACP CPT-25906 Ofc Vst, Est Level III 14:56:19 CDT Farheenvinh Kurtz DO, FACP CPT-88197 Ofc Vst, Est Level IV 10:33:24 CDT Farheenvinh Kurtz DO, FACP CPT-75198 Ofc Vst, Est Level III 15:54:09 CDT Farheenvinh Kurtz [facility] CPT-83763 Ofc Vst, Est Level III 14:27:53 CDT Farheenvinh Kurtz DO, FACP CPT-38970 Ofc Vst, Est Level III 15:17:49 CDT Farheen Kurtz DO, FACP CPT-59140 Ofc Vst, Est Level III 13:46:33 CDT Far[facility]envinh Kurt[facility] CPT-58095 Ofc Vst, Est Level IV 11:31:14 ORNAMENT SETTER Farheenvinh Kurtz DO, FACP CPT-40953 Ofc Vst, New Level IV 10:54:03 ORNAMENT SETTER Farheen Kurtz DO, FACP Procedures Code Procedure Name Date Entry Date Standard Description CPT-31382 Preventive, Est, (40-64) 15:32:51 CDT CPT-14377 Preventive, Est, (40-64) 20:59:28 CDT CPT-24937 Preventive, Est, (40-64) 11:45:08 ORNAMENT SETTER CPT-69880 Handling of specimen from office to lab 10:08:59 ORNAMENT SETTER CPT-89279 Preventive, Est, (40-64) 10:08:59 ORNAMENT SETTER
--- OUTSIDE RECORDS SUMMARY | 2019-04-02 09:33 | XMS REPORT | Clinical Summary ---
Author Author User, [employer] Organization Farheen Kurtz DO, FACP Address Unknown [...] Provider Patient Instruction WELLBUTRIN SR 100 MG [id number] 1 PO BID BUPROPION HCL 81373883592 No Longer Active Farheen Kurtz NORVASC 5 MG TAB 1 PO QD AMLODIPINE BESYLATE 99379659862 Active Aiyana Minor COZAAR 100 MG TAB 1 PO daily LOSARTAN POTASSIUM 76336198530 Active Aiyana Minor CYTOMEL 25 MCG TABS 1 PO BID LIOTHYRONINE SODIUM 61401265734 No Longer Active Farheen Kurtz SYNTHROID 0.025 MG TAB 1 PO daily LEVOTHYROXINE SODIUM 23751303732 Active Aiyana Minor LISINOPRIL 20 MG TABS 1 PO daily LISINOPRIL 08934365344 No Longer Active Farheen Kurtz PREMARIN 0.625 MG/GM CREA apply 2 inch ribbon to outside of vagina BID ESTROGENS, CONJUGATED VAGINAL 03592633404 No Longer Active Farheen Kurtz CLOBETASOL PROPIONATE 0.05 % CREA apply 2 inch ribbon to affected area BID for 2 weeks CLOBETASOL PROPIONATE 54755192388 No Longer Active Farheen Kurtz NYSTATIN 973585 UNIT/GM POWD apply to affected area over cream BID for 7 days NYSTATIN 04894263160 No Longer Active Farheen Kurtz NYSTATIN 528002 UNIT/GM CREA apply to affected area BID for 7 days NYSTATIN 40111668929 No Longer Active Farheen Kurtz PRISTIQ 100 MG [id number] 1 po daily DESVENLAFAXINE SUCCINATE 10925888627 Active Aiyana Minor HYDROCHLOROTHIAZIDE 25 MG TABS 1 po daily HYDROCHLOROTHIAZIDE 44079298606 No Longer Active Farheen Kurtz VITAMIN D 1000 UNIT TABS 1 PO daily CHOLECALCIFEROL 81336206138 Active Farheen Kurtz Vital Signs Date Name [...] Clinical Lists Update: CBC,CMP,Chol,Trig,TSH,Free T4 - Chemistry albumin, serum 3.4 g/dL Estimated Glomerular Filtration Rate (calc) >60 mL/min/1.73m2 urea nitrogen, blood 19 mg/dL calcium, serum 9.1 mg/dL chloride, serum 104 mmol/L cholesterol, serum 193 mg/dL carbon dioxide, venous blood 31 mmol/L creatinine, serum 0.93 mg/dL thyroxine, serum, free 0.63 ng/dL thyroid stimulating hormone, serum 2.71 u[iU]/mL potassium, serum 4.3 mmol/L protein, total, serum 7.4 g/dL aspartate aminotransferase (SGOT), serum 21 U/L alanine aminotransferase (SGPT), serum 48 U/L bilirubin, serum, total 0.4 mg/dL triglyceride, serum, fasting 110 mg/dL sodium, serum 139 mmol/L glucose, plasma fasting 136 mg/dL alkaline phosphatase, serum 113 U/L Clinical Lists Update: CBC,CMP,Chol,Trig,TSH,Free T4 - Hematology hemoglobin, blood 13.3 g/dL hematocrit, blood 40.6 % platelet count 314 10*3/mm3 erythrocyte (RBC) count 4.31 10*6/mm3 leukocyte count, blood 6.6 10*3/mm3 mean corpuscular volume, RBC 94.2 fL red blood cell distribution width 13.1 % Clinical Lists Update: CMP,TSH,Free T4,HgA1c,FLP - Chemistry carbon dioxide, venous blood 31 mmol/L urea nitrogen, blood 18 mg/dL thyroxine, serum, free 0.74 ng/dL HDL cholesterol, serum 50 mg/dL hemoglobin A1C, blood, as % of total hemoglobin 6.3 % thyroid stimulating hormone, serum 2.93 u[iU]/mL LDL cholesterol, serum 119 mg/dL potassium, serum 4.1 mmol/L protein, total, serum 7.6 g/dL aspartate aminotransferase (SGOT), serum 23 U/L alanine aminotransferase (SGPT), serum 58 U/L bilirubin, serum, total 0.5 mg/dL triglyceride, serum, fasting 163 mg/dL sodium, serum 137 mmol/L glucose, plasma fasting 120 mg/dL Estimated Glomerular Filtration Rate (calc) >60 mL/min/1.73m2 cholesterol, serum 202 mg/dL chloride, serum 104 mmol/L calcium, serum 9.0 mg/dL creatinine, serum 0.76 mg/dL albumin, serum 3.6 g/dL alkaline phosphatase, serum 122 U/L Clinical Lists Update: HgA1c - Chemistry hemoglobin A1C, blood, as % of total hemoglobin 6.6 % Encounters Code Encounter Date Provider Facility CPT-84463 Ofc Vst, Est Level IV 15:08:22 CDT Farheenvinh Kurtz DO, FACP CPT-90088 Ofc Vst, Est Level IV 16:43:03 CDT Farheenvinh Kurtz [facility] CPT-36849 Ofc Vst, Est Level IV 14:41:55 CDT Farheenvinh Kurtz DO, FACP CPT-94360 Ofc Vst, Est Level III 14:56:19 CDT Farheenvinh Kurtz DO, FACP CPT-00232 Ofc Vst, Est Level IV 10:33:24 CDT Farheenvinh Kurtz DO, FACP CPT-71141 Ofc Vst, Est Level III 15:54:09 CDT Farheenvinh Kurtz [facility] CPT-79904 Ofc Vst, Est Level III 14:27:53 CDT Farheenvinh Kurtz DO, FACP CPT-93759 Ofc Vst, Est Level III 15:17:49 CDT Farheen Kurtz DO, FACP CPT-71138 Ofc Vst, Est Level III 13:46:33 CDT Far[facility]envinh Kurt[facility] CPT-63399 Ofc Vst, Est Level IV 11:31:14 ELECTRO MECHANICAL ASSEMBLER Farheenvinh Kurtz DO, FACP CPT-09102 Ofc Vst, New Level IV 10:54:03 ELECTRO MECHANICAL ASSEMBLER Farheen Kurtz DO, FACP Procedures Code Procedure Name Date Entry Date Standard Description CPT-15559 Preventive, Est, (40-64) 15:32:51 CDT CPT-89557 Preventive, Est, (40-64) 20:59:28 CDT CPT-55124 Preventive, Est, (40-64) 11:45:08 ELECTRO MECHANICAL ASSEMBLER CPT-52519 Handling of specimen from office to lab 10:08:59 ELECTRO MECHANICAL ASSEMBLER CPT-52890 Preventive, Est, (40-64) 10:08:59 ELECTRO MECHANICAL ASSEMBLER
--- OUTSIDE RECORDS SUMMARY | 2019-04-02 09:33 | XMS REPORT | Clinical Summary ---
Author Author User, [employer] Organization Farheen Kurtz DO, FACP Address Unknown [...] Provider Patient Instruction WELLBUTRIN SR 100 MG [id number] 1 PO BID BUPROPION HCL 43165843890 No Longer Active Farheen Kurtz NORVASC 5 MG TAB 1 PO QD AMLODIPINE BESYLATE 28874776646 Active Aiyana Minor COZAAR 100 MG TAB 1 PO daily LOSARTAN POTASSIUM 97305341110 Active Aiyana Minor CYTOMEL 25 MCG TABS 1 PO BID LIOTHYRONINE SODIUM 66955188519 No Longer Active Farheen Kurtz SYNTHROID 0.025 MG TAB 1 PO daily LEVOTHYROXINE SODIUM 16102919219 Active Aiyana Minor LISINOPRIL 20 MG TABS 1 PO daily LISINOPRIL 39469939059 No Longer Active Farheen Kurtz PREMARIN 0.625 MG/GM CREA apply 2 inch ribbon to outside of vagina BID ESTROGENS, CONJUGATED VAGINAL 87739255817 No Longer Active Farheen Kurtz CLOBETASOL PROPIONATE 0.05 % CREA apply 2 inch ribbon to affected area BID for 2 weeks CLOBETASOL PROPIONATE 65458419668 No Longer Active Farheen Kurtz NYSTATIN 927981 UNIT/GM POWD apply to affected area over cream BID for 7 days NYSTATIN 16263132728 No Longer Active Farheen Kurtz NYSTATIN 013497 UNIT/GM CREA apply to affected area BID for 7 days NYSTATIN 56894519819 No Longer Active Farheen Kurtz PRISTIQ 100 MG [id number] 1 po daily DESVENLAFAXINE SUCCINATE 34927957940 Active Aiyana Minor HYDROCHLOROTHIAZIDE 25 MG TABS 1 po daily HYDROCHLOROTHIAZIDE 74360374739 No Longer Active Farheen Kurtz VITAMIN D 1000 UNIT TABS 1 PO daily CHOLECALCIFEROL 31472342810 Active Farheen Kurtz Vital Signs Date Name [...] % Encounters Code Encounter Date Provider Facility CPT-64919 Ofc Vst, Est Level IV 15:08:22 CDT Farheenvinh Kurtz DO, FACP CPT-73885 Ofc Vst, Est Level IV 16:43:03 CDT Far[facility]envinh [facility] CPT-59313 Ofc Vst, Est Level IV 14:41:55 CDT Farheenvinh Kurtz DO, FACP CPT-77180 Ofc Vst, Est Level III 14:56:19 CDT Farheenvinh Kurtz DO, FACP CPT-59340 Ofc Vst, Est Level IV 10:33:24 CDT Farheenvinh Kurtz DO, FACP CPT-64985 Ofc Vst, Est Level III 15:54:09 CDT Farheenvinh Kurtz [facility] CPT-54920 Ofc Vst, Est Level III 14:27:53 CDT Farheenvinh Kurtz DO, FACP CPT-14080 Ofc Vst, Est Level III 15:17:49 CDT Farheen Kurtz DO, FACP CPT-32282 Ofc Vst, Est Level III 13:46:33 CDT Farheenvinh Kurt[facility] CPT-90131 Ofc Vst, Est Level IV 11:31:14 OUTDOOR ADVERTISING LEASING AGENT Farheenvinh Kurtz DO, FACP CPT-77938 Ofc Vst, New Level IV 10:54:03 OUTDOOR ADVERTISING LEASING AGENT Farheen Kurtz DO, FACP Procedures Code Procedure Name Date Entry Date Standard Description CPT-96276 Preventive, Est, (40-64) 15:32:51 CDT CPT-55019 Preventive, Est, (40-64) 20:59:28 CDT CPT-39439 Preventive, Est, (40-64) 11:45:08 OUTDOOR ADVERTISING LEASING AGENT CPT-36493 Handling of specimen from office to lab 10:08:59 OUTDOOR ADVERTISING LEASING AGENT CPT-83742 Preventive, Est, (40-64) 10:08:59 OUTDOOR ADVERTISING LEASING AGENT
--- OUTSIDE RECORDS SUMMARY | 2019-04-02 09:34 | XMS REPORT | Clinical Summary ---
Author Author du goff DO, [place] [address] Phone Unavailable Allergies, Adverse Reactions, Alerts Allergy Name Reaction Description Start Date Severity Status Provider PENICILLIN Critical Active Farheen Kurtz SULFA Critical Active Farheen Kurtz Conditions or Problems Problem Name Problem Code Onset Date Status Entry Date Provider Comment Standard Description Annotate LYMPHEDEMA, SEVERE 457.1 Active Farheen Kurtz OTHER NONINFECTIOUS LYMPHEDEMA DIABETES MELLITUS, NONINSULIN DEPENDENT (NIDDM) 250.02 Active Farheen Kurtz DIABETES MELLITUS WITHOUT MENTION OF COMPLICATION, TYPE II OR UNSPECIFIED TYPE, UNCONTROLLED HYPOTHYROIDISM, PRIMARY 244.9 Active Farheen Kurtz UNSPECIFIED HYPOTHYROIDISM UNSPECIFIED VITAMIN D DEFICIENCY 268.9 Active Farheen Kurtz MENOPAUSAL SYNDROME 627.0 Active Farheen Kurtz PREMENOPAUSAL MENORRHAGIA HYPERTRIGLYCERIDEMIA 272.1 Active Farheen Kurtz PURE HYPERGLYCERIDEMIA HYPERTENSION 401.1 Active Farheen Kurtz ESSENTIAL HYPERTENSION, BENIGN DEPRESSION, ACUTE, RECURRENT 296.33 Active Farheen Kurtz MAJOR DEPRESSIVE DISORDER, RECURRENT EPISODE, SEVERE, WITHOUT MENTION OF PSYCHOTIC BEHAVIOR ANXIETY 300.00 Active Farheen Kurtz ANXIETY STATE, UNSPECIFIED DYSPHAGIA, PHARYNGOESOPHAGEAL PHASE 787.24 Active Farheen Kurtz DYSPHAGIA, PHARYNGOESOPHAGEAL PHASE Medication List Medication Instructions Start Date Stop Date Generic Name NDC Status Provider Patient Instruction VITAMIN D 1000 UNIT TABS 1 PO daily CHOLECALCIFEROL 36704481781 Active Farheen Kurtz PRISTIQ 100 MG [id number] 1 po daily DESVENLAFAXINE SUCCINATE 37512872144 Active Farheen Kurtz SYNTHROID 0.025 MG TAB 1 PO daily LEVOTHYROXINE SODIUM 16881037525 Active Aiyana Alba COZAAR 100 MG TAB 1 PO daily LOSARTAN POTASSIUM 57390472930 Active Farheen Kurtz NORVASC 5 MG TAB 1 PO QD AMLODIPINE BESYLATE 74411269704 Active Farheen Kurtz Vital Signs Date Name Value Unit Range Description blood pressure, diastolic 80 mm[Hg] BP saba blood pressure, systolic 130 mm[Hg] BP sys pulse rate E&M 80 /min Heart rate respiratory rate E&M 14 /min Resp rate temperature E&M 98.6 [degF] Body temperature weight E&M 235 [lb_av] Weight Measured blood pressure, diastolic 102 mm[Hg] BP saba blood pressure, systolic 178 mm[Hg] BP sys pulse rate E&M 78 /min Heart rate respiratory rate E&M 14 /min Resp rate weight E&M 236 [lb_av] Weight Measured blood pressure, diastolic 66 mm[Hg] BP saba blood pressure, systolic 158 mm[Hg] BP sys pulse rate E&M 82 /min Heart rate respiratory rate E&M 14 /min Resp rate weight E&M 236 [lb_av] Weight Measured Diagnostic Results Date Name Value Unit Range Description Clinical Lists Update: CBC,CMP,Chol,Trig,TSH,Free T4 - Chemistry albumin, serum 3.4 g/dL thyroid stimulating hormone, serum 2.71 u[iU]/mL alkaline phosphatase, serum 113 U/L glucose, plasma fasting 136 mg/dL urea nitrogen, blood 19 mg/dL sodium, serum 139 mmol/L calcium, serum 9.1 mg/dL triglyceride, serum, fasting 110 mg/dL chloride, serum 104 mmol/L bilirubin, serum, total 0.4 mg/dL cholesterol, serum 193 mg/dL alanine aminotransferase (SGPT), serum 48 U/L carbon dioxide, venous blood 31 mmol/L aspartate aminotransferase (SGOT), serum 21 U/L creatinine, serum 0.93 mg/dL protein, total, serum 7.4 g/dL thyroxine, serum, free 0.63 ng/dL potassium, serum 4.3 mmol/L Estimated Glomerular Filtration Rate (calc) >60 mL/min/1.73m2 Clinical Lists Update: CBC,CMP,Chol,Trig,TSH,Free T4 - Hematology hemoglobin, blood 13.3 g/dL hematocrit, blood 40.6 % platelet count 314 10*3/mm3 erythrocyte (RBC) count 4.31 10*6/mm3 leukocyte count, blood 6.6 10*3/mm3 mean corpuscular volume, RBC 94.2 fL red blood cell distribution width 13.1 % Clinical Lists Update: CMP,FLP,HgA1c - Chemistry creatinine, serum 0.93 mg/dL protein, total, serum 7.2 g/dL LDL cholesterol, serum 139 mg/dL hemoglobin A1C, blood, as % of total hemoglobin 6.6 % carbon dioxide, venous blood 30 mmol/L aspartate aminotransferase (SGOT), serum 21 U/L cholesterol, serum 203 mg/dL alanine aminotransferase (SGPT), serum 43 U/L chloride, serum 103 mmol/L bilirubin, serum, total 0.5 mg/dL calcium, serum 8.5 mg/dL triglyceride, serum, fasting 126 mg/dL urea nitrogen, blood 22 mg/dL sodium, serum 137 mmol/L alkaline phosphatase, serum 94 U/L glucose, plasma fasting 139 mg/dL albumin, serum 3.7 g/dL Estimated Glomerular Filtration Rate (calc) >60 mL/min/1.73m2 potassium, serum 4.3 mmol/L HDL cholesterol, serum 39 mg/dL Clinical Lists Update: HgA1c - Chemistry hemoglobin A1C, blood, as % of total hemoglobin 6.6 % Clinical Lists Update: TSH,FREE T4 - Chemistry thyroxine, serum, free 0.83 ng/dL thyroid stimulating hormone, serum 3.26 u[iU]/mL
--- OUTSIDE RECORDS SUMMARY | 2019-04-02 09:34 | XMS REPORT | Clinical Summary ---
Author Author User, [employer] Organization Farheen Kurtz DO, FACP Address Unknown [...] Anxiety state, unspecified DYSPHAGIA, PHARYNGOESOPHAGEAL PHASE 787.24 Resolved Farheen Kurtz Dysphagia, pharyngoesophageal phase WELL WOMAN V70.0 Resolved Farheen Kurtz Routine general medical examination at a health care facility Medication List Medication Instructions Start Date Stop Date Generic Name NDC Status Provider Patient Instruction PRISTIQ 100 MG [id number] 1 po daily DESVENLAFAXINE SUCCINATE 35689878554 No Longer Active Farheen Kurtz TRANSDERM-SCOP 1.5 MG PT72 1 patch behind ear and change every 3 days SCOPOLAMINE BASE 54572305213 Active Farheen Kurtz VITAMIN D (ERGOCALCIFEROL) 29217 UNIT CAPS 1 PO Weekly ERGOCALCIFEROL 42405203741 Active Farheen Kurtz CLOBETASOL PROPIONATE E 0.05 % CREA apply daily as needed CLOBETASOL PROP EMOLLIENT BASE 38304993351 Active Farheen Kurtz NYSTATIN 566324 UNIT/GM POWD apply over the Nystatin cream BID NYSTATIN 83999658737 No Longer Active Farheen Mary Kurtz NYSTATIN 459126 UNIT/GM CREA apply to affected areas BID for 7 days NYSTATIN 24827320856 No Longer Active Farheenvinh Kurtz WELLBUTRIN SR 100 MG [id number] 1 PO BID BUPROPION HCL 72246487620 No Longer Active Farheenvinh Kurtz NORVASC 5 MG TAB 1 PO QD AMLODIPINE BESYLATE 84862464069 Active Aiyana Minor COZAAR 100 MG TAB 1 PO daily [place] POTASSIUM 72517141146 Active Aiyana Minor CYTOMEL 25 MCG TABS 1 PO BID LIOTHYRONINE SODIUM 40766408469 No Longer Active Farheenvinh Kurtz SYNTHROID 0.025 MG TAB 1 PO daily LEVOTHYROXINE SODIUM 16159904846 Active Aiyana Minor LISINOPRIL 20 MG TABS 1 PO daily LISINOPRIL 80007479790 No Longer Active Farheenvinh Kurtz PREMARIN 0.625 MG/GM CREA apply 2 inch ribbon to outside of vagina BID ESTROGENS, CONJUGATED VAGINAL 83395139294 No Longer Active Farheenvinh Kurtz CLOBETASOL PROPIONATE 0.05 % CREA apply 2 inch ribbon to affected area BID for 2 weeks CLOBETASOL PROPIONATE 48402850949 No Longer Active Farheenvinh Kurtz NYSTATIN 227354 UNIT/GM POWD apply to affected area over cream BID for 7 days NYSTATIN 13460653109 No Longer Active Farheen Mary Kurtz NYSTATIN 238859 UNIT/GM CREA apply to affected area BID for 7 days NYSTATIN 27926083573 No Longer Active Farheenvinh Kurtz HYDROCHLOROTHIAZIDE 25 MG TABS 1 po daily HYDROCHLOROTHIAZIDE 13292697821 No Longer Active Farheen Kurtz VITAMIN D 1000 UNIT TABS 1 PO daily CHOLECALCIFEROL 78789128951 No Longer Active Farheen Mary Kurtz Vital Signs Date Name Value Unit Range Description blood pressure, diastolic - 8462-4 78 mm[Hg] BP saba blood pressure, systolic - 8480-6 134 mm[Hg] BP sys pulse rate E&M - 8867-4 72 /min Heart rate respiratory rate E&M - 9279-1 14 /min Resp rate weight E&M - 3141-9 230 [lb_av] Weight Measured blood pressure, diastolic - 8462-4 82 mm[Hg] [...] E&M - 3141-9 235 [lb_av] Weight Measured Diagnostic Results Date Name [...] distribution width 13.1 % Clinical Lists Update: CBC,CMP,FLP,TSH,FREE T4,HGA1C - Chemistry glucose, plasma fasting 140 mg/dL chloride, serum 104 mmol/L albumin, serum 3.5 g/dL alkaline phosphatase, serum 102 U/L cholesterol, serum 186 mg/dL thyroxine, serum, free 0.64 ng/dL HDL cholesterol, serum 44 mg/dL hemoglobin A1C, blood, as % of total hemoglobin 6.4 % thyroid stimulating hormone, serum 2.67 u[iU]/mL LDL cholesterol, serum 114 mg/dL protein, total, serum 7.1 g/dL aspartate aminotransferase (SGOT), serum 20 U/L alanine aminotransferase (SGPT), serum 31 U/L bilirubin, serum, total 0.4 mg/dL triglyceride, serum, fasting 141 mg/dL sodium, serum 138 mmol/L potassium, serum 4.1 mmol/L creatinine, serum 0.82 mg/dL carbon dioxide, venous blood 28 mmol/L urea nitrogen, blood 14 mg/dL calcium, serum 8.9 mg/dL Estimated Glomerular Filtration Rate (calc) >60 mL/min/1.73m2 Clinical Lists Update: CBC,CMP,FLP,TSH,FREE T4,HGA1C - Urinalysis microalbumin, urine, semiquantitative 1.2 mg/dL Clinical Lists Update: CMP,TSH,Free T4,HgA1c,FLP - Chemistry Estimated Glomerular Filtration Rate (calc) >60 mL/min/1.73m2 glucose, plasma fasting 120 mg/dL sodium, serum 137 mmol/L triglyceride, serum, fasting 163 mg/dL bilirubin, serum, total 0.5 mg/dL alanine aminotransferase (SGPT), serum 58 U/L aspartate aminotransferase (SGOT), serum 23 U/L protein, total, serum 7.6 g/dL potassium, serum 4.1 mmol/L LDL cholesterol, serum 119 mg/dL thyroid stimulating hormone, serum 2.93 u[iU]/mL hemoglobin A1C, blood, as % of total hemoglobin 6.3 % HDL cholesterol, serum 50 mg/dL thyroxine, serum, free 0.74 ng/dL creatinine, serum 0.76 mg/dL carbon dioxide, venous blood 31 mmol/L cholesterol, serum 202 mg/dL chloride, serum 104 mmol/L calcium, serum 9.0 mg/dL urea nitrogen, blood 18 mg/dL alkaline phosphatase, serum 122 U/L albumin, serum 3.6 g/dL Clinical Lists Update: HgA1c - Chemistry hemoglobin A1C, blood, as % of total hemoglobin 6.6 % Encounters Code Encounter Date Provider Facility CPT-66911 Ofc Vst, Est Level IV 19:38:36 CDT Farheenvinh Kurtz DO, FACP CPT-12182 Ofc Vst, Est Level IV 15:08:22 CDT Farheenvinh Kurtz DO, FACP CPT-74462 Ofc Vst, Est Level IV 16:43:03 CDT Farheen Kurtz [facility] CPT-22971 Ofc Vst, Est Level IV 14:41:55 CDT Farheen Kurtz DO, FACP CPT-12437 Ofc Vst, Est Level III 14:56:19 CDT Farheen Kurtz DO, FACP CPT-71569 Ofc Vst, Est Level IV 10:33:24 CDT Farheen Kurtz DO, FACP CPT-58030 Ofc Vst, Est Level III 15:54:09 CDT Farheen Kurtz [facility] CPT-80675 Ofc Vst, Est Level III 14:27:53 CDT Farheen Kurtz DO, FACP CPT-06690 Ofc Vst, Est Level III 15:17:49 CDT Farheen Kurtz DO, FACP CPT-01527 Ofc Vst, Est Level III 13:46:33 CDT Farheen Mary Jerardo [facility] CPT-37546 Ofc Vst, Est Level IV 11:31:14 SPECIMEN COLLECTOR Farheen Kurtz DO, FACP CPT-43170 Ofc Vst, New Level IV 10:54:03 SPECIMEN COLLECTOR Farheen Kurtz DO, FACP Procedures Code Procedure Name Date Entry Date Standard Description CPT-84026 Preventive, Est, (40-64) 15:32:51 CDT CPT-62367 Preventive, Est, (40-64) 20:59:28 CDT CPT-93906 Preventive, Est, (40-64) 11:45:08 SPECIMEN COLLECTOR CPT-76971 Handling of specimen from office to lab 10:08:59 SPECIMEN COLLECTOR CPT-82242 Preventive, Est, (40-64) 10:08:59 SPECIMEN COLLECTOR
--- OUTSIDE RECORDS SUMMARY | 2019-04-02 09:34 | XMS REPORT | Clinical Summary ---
Author Author User, [employer] Organization Farheen Kurtz DO, FACP Address Unknown [...] NDC Status Provider Patient Instruction VITAMIN D (ERGOCALCIFEROL) 16893 UNIT CAPS 1 PO Weekly ERGOCALCIFEROL 47716875023 Active Farheen Kurtz CLOBETASOL PROPIONATE E 0.05 % CREA apply daily as needed CLOBETASOL PROP EMOLLIENT BASE 93370766180 Active Farheen Kurtz NYSTATIN 674635 UNIT/GM POWD apply over the Nystatin cream BID NYSTATIN 87790398134 Active Farheen Kurtz NYSTATIN 670956 UNIT/GM CREA apply to affected areas BID for 7 days NYSTATIN 66631512685 Active Farheen Kurtz WELLBUTRIN SR 100 MG [id number] 1 PO BID BUPROPION HCL 60384626920 No Longer Active Farheen Mary Kurtz NORVASC 5 MG TAB 1 PO QD AMLODIPINE BESYLATE 59453680018 Active Aiyana Minor COZAAR 100 MG TAB 1 PO daily [place] POTASSIUM 89951649146 Active Aiyana Minor CYTOMEL 25 MCG TABS 1 PO BID LIOTHYRONINE SODIUM 21882688904 No Longer Active Farheen Mary Kurtz SYNTHROID 0.025 MG TAB 1 PO daily LEVOTHYROXINE SODIUM 26757734800 Active Aiyana Minor LISINOPRIL 20 MG TABS 1 PO daily LISINOPRIL 89757516708 No Longer Active Farheen Mary Kurtz PREMARIN 0.625 MG/GM CREA apply 2 inch ribbon to outside of vagina BID ESTROGENS, CONJUGATED VAGINAL 64212750471 No Longer Active Farheen Mary Kurtz CLOBETASOL PROPIONATE 0.05 % CREA apply 2 inch ribbon to affected area BID for 2 weeks CLOBETASOL PROPIONATE 58927866250 No Longer Active Farheen Mary Kurtz NYSTATIN 339570 UNIT/GM POWD apply to affected area over cream BID for 7 days NYSTATIN 63342735086 No Longer Active Farheen Mary Kurtz NYSTATIN 634487 UNIT/GM CREA apply to affected area BID for 7 days NYSTATIN 25977339609 No Longer Active Farheenvinh Kurtz PRISTIQ 100 MG [id number] 1 po daily DESVENLAFAXINE SUCCINATE 38294223279 Active Aiyana Minor HYDROCHLOROTHIAZIDE 25 MG TABS 1 po daily HYDROCHLOROTHIAZIDE 70525208579 No Longer Active Farheenvinh Kurtz VITAMIN D 1000 UNIT TABS 1 PO daily CHOLECALCIFEROL 45802780227 No Longer Active Farheen Mary Kurtz Vital [...] % Encounters Code Encounter Date Provider Facility CPT-49253 Ofc Vst, Est Level IV 19:38:36 CDT Farheen Kurtz DO, FACP CPT-43747 Ofc Vst, Est Level IV 15:08:22 CDT Farheen Kurtz DO, FACP CPT-21486 Ofc Vst, Est Level IV 16:43:03 CDT Farheen Kurtz [facility] CPT-38982 Ofc Vst, Est Level IV 14:41:55 CDT Farheen Kurtz DO, FACP CPT-29262 Ofc Vst, Est Level III 14:56:19 CDT Farheen Kurtz DO, FACP CPT-12186 Ofc Vst, Est Level IV 10:33:24 CDT Farheen Kurtz DO, FACP CPT-07735 Ofc Vst, Est Level III 15:54:09 CDT Farheen Kurtz [facility] CPT-54727 Ofc Vst, Est Level III 14:27:53 CDT Farheen Urbanoner Farheenvinh Kurtz DO, FACP CPT-18248 Ofc Vst, Est Level III 15:17:49 CDT Farheen Desouzai Lou Jerardo DO, FACP CPT-44171 Ofc Vst, Est Level III 13:46:33 CDT Farheen Urbanoner [facility] CPT-33041 Ofc Vst, Est Level IV 11:31:14 BLANKMAKER Farheen Urbanokate Kurtz DO, FACP CPT-23071 Ofc Vst, New Level IV 10:54:03 BLANKMAKER Farheen Zhong Lou Kurtz DO, FACP Procedures Code Procedure Name Date Entry Date Standard Description CPT-47992 Preventive, Est, (40-64) 15:32:51 CDT CPT-24170 Preventive, Est, (40-64) 20:59:28 CDT CPT-43693 Preventive, Est, (40-64) 11:45:08 BLANKMAKER CPT-55214 Handling of specimen from office to lab 10:08:59 BLANKMAKER CPT-45941 Preventive, Est, (40-64) 10:08:59 BLANKMAKER
--- OUTSIDE RECORDS SUMMARY | 2019-04-02 09:35 | XMS REPORT | Clinical Summary ---
Author Author du goff DO, [place] [address] Phone Unavailable Allergies, Adverse Reactions, Alerts Allergy [...] 1000 UNIT TABS 1 PO daily CHOLECALCIFEROL 27799470483 Active Farheen Kurtz PRISTIQ 100 MG [id number] 1 po daily DESVENLAFAXINE SUCCINATE 92581292688 Active Farheen Kurtz SYNTHROID 0.025 MG TAB 1 PO daily LEVOTHYROXINE SODIUM 19985969802 Active Aiyana [place] COZAAR 100 MG TAB 1 PO daily LOSARTAN POTASSIUM 63904307634 Active Farheen Kurtz NORVASC 5 MG TAB 1 PO QD AMLODIPINE BESYLATE 44728899607 Active Farheen Kurtz Vital Signs Date Name [...]
--- OUTSIDE RECORDS SUMMARY | 2019-04-02 09:35 | XMS REPORT | Clinical Summary ---
Author Author du goff DO, [place] [address] Phone Unavailable Allergies, Adverse Reactions, Alerts Allergy [...] 1000 UNIT TABS 1 PO daily CHOLECALCIFEROL 83111058938 Active Farheen Kurtz PRISTIQ 100 MG [id number] 1 po daily DESVENLAFAXINE SUCCINATE 77941312979 Active Farheen Kurtz SYNTHROID 0.025 MG TAB 1 PO daily LEVOTHYROXINE SODIUM 24064548957 Active Aiyana [place] COZAAR 100 MG TAB 1 PO daily LOSARTAN POTASSIUM 77571902056 Active Farheen Kurtz NORVASC 5 MG TAB 1 PO QD AMLODIPINE BESYLATE 57117532087 Active Farheen Kurtz Vital Signs Date Name [...]
--- OUTSIDE RECORDS SUMMARY | 2019-04-02 09:35 | XMS REPORT | Clinical Summary ---
Author Author du goff DO, [place] [address] Phone Unavailable Allergies, Adverse Reactions, Alerts Allergy [...] UNSPECIFIED VITAMIN D DEFICIENCY 268.9 Active Farheen Kutrz MENOPAUSAL SYNDROME 627.0 Active Farheen Kurtz PREMENOPAUSAL [...] 1000 UNIT TABS 1 PO daily CHOLECALCIFEROL 56721929459 Active Farheen Kurtz PRISTIQ 100 MG [id number] 1 po daily DESVENLAFAXINE SUCCINATE 72637565883 Active Farheen Kurtz SYNTHROID 0.025 MG TAB 1 PO daily LEVOTHYROXINE SODIUM 90406352771 Active Aiyana [place] COZAAR 100 MG TAB 1 PO daily LOSARTAN POTASSIUM 48746305151 Active Farheen Kurtz NORVASC 5 MG TAB 1 PO QD AMLODIPINE BESYLATE 85409470120 Active Farheen Kurtz Vital Signs Date Name [...]
--- OUTSIDE RECORDS SUMMARY | 2019-04-02 09:35 | XMS REPORT | Clinical Summary ---
Author Author du goff DO, [place] [address] Phone Unavailable Allergies, Adverse Reactions, Alerts Allergy Name Reaction Description Start Date Severity Status Provider PENICILLIN Critical Active Farheen Kurtz SULFA Critical Active Farheen Kurtz Conditions or Problems Problem Name Problem Code Onset Date Status Entry Date Provider Comment Standard Description Annotate LYMPHEDEMA, SEVERE 457.1 Active Farheen Kurtz OTHER NONINFECTIOUS LYMPHEDEMA HYPERGLYCEMIA, MILD 790.6 Active Farheen Kurtz OTHER ABNORMAL BLOOD CHEMISTRY HYPOTHYROIDISM, PRIMARY 244.9 Active Farheen Kurtz UNSPECIFIED HYPOTHYROIDISM UNSPECIFIED VITAMIN D DEFICIENCY 268.9 Active Farheen Kurtz MENOPAUSAL SYNDROME 627.0 Active Farheen Kurtz PREMENOPAUSAL MENORRHAGIA HYPERTRIGLYCERIDEMIA 272.1 Active Farheen Kurtz PURE HYPERGLYCERIDEMIA HYPERTENSION 401.1 Active Farheen Kurtz ESSENTIAL HYPERTENSION, BENIGN HEALTH SCREENING V70.0 Active Farheen Kurtz ROUTINE GENERAL MEDICAL EXAMINATION AT HEALTH CARE FACILITY Medication List Medication Instructions Start Date Stop Date Generic Name NDC Status Provider Patient Instruction VITAMIN D 1000 UNIT TABS 1 PO daily CHOLECALCIFEROL 66267752394 Active Farheen Kurtz PRISTIQ 100 MG [id number] 1 po daily DESVENLAFAXINE SUCCINATE 31867233010 Active Aiyana Minor SYNTHROID 0.025 MG TAB 1 PO daily LEVOTHYROXINE SODIUM 43173984269 Active Aiyana Minor COZAAR 100 MG TAB 1 PO daily [place] POTASSIUM 70358847863 Active Farheen Kurtz WELLBUTRIN SR 100 MG [id number] 1 PO BID BUPROPION HCL 64245909359 Active Aiyana Mily Vital Signs Date Name Value Unit Range Description blood pressure, diastolic 66 mm[Hg] BP saba blood pressure, systolic 158 mm[Hg] BP sys pulse rate E&M 82 /min Heart rate respiratory rate E&M 14 /min Respiratory rate weight E&M 236 [lb_av] Weight Measured blood pressure, diastolic 72 mm[Hg] BP saba blood pressure, systolic 142 mm[Hg] BP sys pulse rate E&M 80 /min Heart rate respiratory rate E&M 14 /min Respiratory rate weight E&M 227 [lb_av] Weight Measured Diagnostic Results Date Name Value Unit Range Description Clinical Lists Update: CBC,CMP,TSH,Free T4,FLP - Chemistry Estimated Glomerular Filtration Rate (calc) 76 mL/min/1.73m2 HDL cholesterol, serum 36 mg/dL glucose, plasma fasting 113 mg/dL alkaline phosphatase, serum 103 U/L sodium, serum 138 mmol/L urea nitrogen, blood 16 mg/dL triglyceride, serum, fasting 144 mg/dL calcium, serum 8.1 mg/dL bilirubin, serum, total 0.6 mg/dL chloride, serum 104 mmol/L alanine aminotransferase (SGPT), serum 43 U/L cholesterol, serum 192 mg/dL aspartate aminotransferase (SGOT), serum 23 U/L carbon dioxide, venous blood 28 mmol/L protein, total, serum 6.9 g/dL creatinine, serum 0.77 mg/dL potassium, serum 4.2 mmol/L thyroxine, serum, free 0.28 ng/dL LDL cholesterol, serum 127 mg/dL albumin, serum 3.5 g/dL Clinical Lists Update: CBC,CMP,TSH,Free T4,FLP - Hematology hemoglobin, blood 14.2 g/dL hematocrit, blood 43.7 % platelet count 242 10*3/mm3 erythrocyte (RBC) count 4.71 10*6/mm3 leukocyte count, blood 6.0 10*3/mm3 mean corpuscular volume, RBC 92.8 fL red blood cell distribution width 13.4 % Clinical Lists Update: CMP,FLP,HgA1c - Chemistry creatinine, serum 0.93 mg/dL aspartate aminotransferase (SGOT), serum 21 U/L hemoglobin A1C, blood, as % of total hemoglobin 6.6 % carbon dioxide, venous blood 30 mmol/L alanine aminotransferase (SGPT), serum 43 U/L cholesterol, serum 203 mg/dL bilirubin, serum, total 0.5 mg/dL chloride, serum 103 mmol/L triglyceride, serum, fasting 126 mg/dL calcium, serum 8.5 mg/dL sodium, serum 137 mmol/L urea nitrogen, blood 22 mg/dL glucose, plasma fasting 139 mg/dL alkaline phosphatase, serum 94 U/L Estimated Glomerular Filtration Rate (calc) >60 mL/min/1.73m2 albumin, serum 3.7 g/dL protein, total, serum 7.2 g/dL potassium, serum 4.3 mmol/L HDL cholesterol, serum 39 mg/dL LDL cholesterol, serum 139 mg/dL Clinical Lists Update: TSH,FREE T4 - Chemistry thyroxine, serum, free 0.83 ng/dL thyroid stimulating hormone, serum 3.26 u[iU]/mL
--- OUTSIDE RECORDS SUMMARY | 2019-04-02 09:35 | XMS REPORT | Clinical Summary ---
Author Author du goff DO, [place] [address] Phone Unavailable Allergies, Adverse Reactions, Alerts Allergy [...] 1000 UNIT TABS 1 PO daily CHOLECALCIFEROL 89339608849 Active Farheen Kurtz PRISTIQ 100 MG [id number] 1 po daily DESVENLAFAXINE SUCCINATE 27846913900 Active Aiyana Minor SYNTHROID 0.025 MG TAB 1 PO daily LEVOTHYROXINE SODIUM 39478281820 Active Aiyana [place] COZAAR 100 MG TAB 1 PO daily [place]AN POTASSIUM 17279842411 Active Farheen Kurtz WELLBUTRIN SR 100 MG [id number] 1 PO BID BUPROPION HCL 01560518252 Active Aiyana Mily Vital Signs Date Name [...]
--- OUTSIDE RECORDS SUMMARY | 2019-04-02 09:36 | XMS REPORT | Clinical Summary ---
Author Author du goff DO, [place] [address] Phone Unavailable Allergies, Adverse Reactions, Alerts Allergy [...] 1000 UNIT TABS 1 PO daily CHOLECALCIFEROL 28032710552 Active Farheen Kurtz PRISTIQ 100 MG [id number] 1 po daily DESVENLAFAXINE SUCCINATE 04789770744 Active Farheen Kurtz SYNTHROID 0.025 MG TAB 1 PO daily LEVOTHYROXINE SODIUM 64787182934 Active Aiyana [place] COZAAR 100 MG TAB 1 PO daily LOSARTAN POTASSIUM 27587443750 Active Farheen Kurtz NORVASC 5 MG TAB 1 PO QD AMLODIPINE BESYLATE 50391294798 Active Farheen Kurtz Vital Signs Date Name [...]
--- OUTSIDE RECORDS SUMMARY | 2019-04-02 09:36 | XMS REPORT | Clinical Summary ---
Author Author du goff DO, [place] [address] Phone Unavailable Allergies, Adverse Reactions, Alerts Allergy [...] HYPERTENSION, BENIGN DEPRESSION, ACUTE, RECURRENT 296.33 Active Fraheen Kurtz MAJOR DEPRESSIVE DISORDER, RECURRENT EPISODE, SEVERE, WITHOUT MENTION OF PSYCHOTIC BEHAVIOR ANXIETY 300.00 Active Farheen Kurtz ANXIETY STATE, UNSPECIFIED DYSPHAGIA, PHARYNGOESOPHAGEAL PHASE 787.24 Active Farheen Kurtz DYSPHAGIA, PHARYNGOESOPHAGEAL PHASE Medication List Medication Instructions Start Date Stop Date Generic Name NDC Status Provider Patient Instruction VITAMIN D 1000 UNIT TABS 1 PO daily CHOLECALCIFEROL 42419134349 Active Farheen Kurtz PRISTIQ 100 MG [id number] 1 po daily DESVENLAFAXINE SUCCINATE 84255720551 Active Farheen Kurtz SYNTHROID 0.025 MG TAB 1 PO daily LEVOTHYROXINE SODIUM 42609182386 Active Aiyana [place] COZAAR 100 MG TAB 1 PO daily LOSARTAN POTASSIUM 37799193048 Active Farheen Kurtz NORVASC 5 MG TAB 1 PO QD AMLODIPINE BESYLATE 80328705286 Active Farheen Kurtz Vital Signs Date Name [...]
--- OUTSIDE RECORDS SUMMARY | 2019-04-02 09:36 | XMS REPORT | Clinical Summary ---
Author Author du goff DO, [place] [address] Phone Unavailable Allergies, Adverse Reactions, Alerts Allergy [...] 1000 UNIT TABS 1 PO daily CHOLECALCIFEROL 31793470120 Active Farheen Kurtz PRISTIQ 100 MG [id number] 1 po daily DESVENLAFAXINE SUCCINATE 14271685131 Active Farheen Kurtz SYNTHROID 0.025 MG TAB 1 PO daily LEVOTHYROXINE SODIUM 94231062737 Active Aiyana [place] COZAAR 100 MG TAB 1 PO daily LOSARTAN POTASSIUM 90399714519 Active Farheen Kurtz NORVASC 5 MG TAB 1 PO QD AMLODIPINE BESYLATE 66351002204 Active Farheen Kurtz Vital Signs Date Name [...]
--- OUTSIDE RECORDS SUMMARY | 2019-04-02 09:36 | XMS REPORT | Clinical Summary ---
Author Author du goff DO, [place] [address] Phone Unavailable Allergies, Adverse Reactions, Alerts Allergy [...] 1000 UNIT TABS 1 PO daily CHOLECALCIFEROL 41548702601 Active Farheen Kurtz PRISTIQ 100 MG [id number] 1 po daily DESVENLAFAXINE SUCCINATE 30524243882 Active Farheen Kurtz SYNTHROID 0.025 MG TAB 1 PO daily LEVOTHYROXINE SODIUM 39736001572 Active Aiyana [place] COZAAR 100 MG TAB 1 PO daily LOSARTAN POTASSIUM 29239967564 Active Farheen Kurtz NORVASC 5 MG TAB 1 PO QD AMLODIPINE BESYLATE 86466854460 Active Farheen Kurtz Vital Signs Date Name [...]
[2019-04-02 10:13] LABS: BASOPHILS % (AUTO) 0 % (0-10); EOSINOPHILS # (AUTO) 0.2 10^3/uL (0.0-0.3); EOSINOPHILS % (AUTO) 2 % (0-10); HEMATOCRIT 43 % (35-52); HEMOGLOBIN 13.7 G/DL (11.5-16.0); LYMPHOCYTES # (AUTO) 1.6 X 10^3 (1.0-4.0); LYMPHOCYTES % (AUTO) 17 % (12-44); MEAN CORPUSCULAR HEMOGLOBIN 29 PG (25-34); MEAN CORPUSCULAR HGB CONC 32 G/DL (32-36); MEAN CORPUSCULAR VOLUME 91 FL (80-99); MEAN PLATELET VOLUME 10.7 FL (7.4-10.4); MONOCYTES # (AUTO) 0.9 X 10^3 (0.0-1.0); MONOCYTES % (AUTO) 10 % (0-12); NEUTROPHILS # (AUTO) 6.8 X 10^3 (1.8-7.8); NEUTROPHILS % (AUTO) 71 % (42-75); PLATELET COUNT 273 10^3/uL (130-400); WHITE BLOOD COUNT 9.5 10^3/uL (4.3-11.0)
[2019-04-02 10:23] LABS: BUN/CREATININE RATIO 12; CARBON DIOXIDE 24 MMOL/L (21-32); CHLORIDE 101 MMOL/L (98-107); CREATININE SERUM 0.82 MG/DL (0.60-1.30); GFR ESTIMATED > 60; GLUCOSE 115 MG/DL (70-105); POTASSIUM 4.6 MMOL/L (3.6-5.0); SODIUM 141 MMOL/L (135-145)
[2019-04-02 10:24] LABS: BAND NEUTROPHILS 9 %; BASOPHILS % (MANUAL) 0 %; EOSINOPHILS % (MANUAL) 3 %; LYMPHOCYTES % (MANUAL) 19 %; MONOCYTES % (MANUAL) 10 %; NEUTROPHILS % (MANUAL) 59 %; RBC MORPH NORMAL
--- NOTE | 2019-04-02 10:34 | ED General ---
General Chief Complaint: Cardiac/General Problems Stated Complaint: CONGESTION, LOW HR - SENT FROM Nursing Triage Note: Patient c/o cough, congestion, and low heart rate. States her cough started and the congestion has just progressed went to urgent care to be evaluated. Patient sent to ED for further evaluation due to irregular heart rate. Nursing Sepsis Screen: No Definite Risk History of Present Illness Date Seen by Provider: April 02, 2019 Time Seen by Provider: 10:00 Initial Comments This is a 68 y/o f who presents to the ED for evaluation. Pt seen at for URI symptoms. Noted to have irregular HR and EKG showed frequent PVCs. Sent to ED for further evaluation. Pt denies any chest pain, palpitations, decreased exertional capacity, dyspnea, dizziness, lightheadedness. Has never had a cardiac work up. Had a pre-op EKG approx 2 years. Denies ever being told that she had PVCs or Bigeminy. Reports URI symptoms x 3 days, non-productive cough, sore throat, no fever, +congestion. Feels better than yesterday. Allergies and Home Medications Allergies Coded Allergies: Penicillins (Unverified Allergy, Mild, 04/17/09) Sulfa(Sulfonamide Antibiotics) (Unverified Allergy, Mild, 04/17/09) Home Medications Desvenlafaxine Succinate 100 Mg Tab.sr.24h, 100 MG PO DAILY, (Reported) Hydrocodone Bit/Acetaminophen 1 Tab Tablet, 1-2 TAB PO q 3hr prn pain, (Reported) Thyroid 15 Mg Tablet, 15 MG PO DAILY, (Reported) Patient Home Medication List Home Medication List Reviewed: Yes Review of Systems Review of Systems Constitutional: No chills, No fever, No weakness EENTM: nose congestion, throat pain; No hearing loss, No ear pain, No blurred vision, No double vision Respiratory: cough; No short of breath, No stridor, No wheezing Cardiovascular: No chest pain, No edema, No palpitations, No syncope Gastrointestinal: No abdominal pain, No nausea, No vomiting Musculoskeletal: joint pain; No muscle pain, No muscle weakness Skin: No pruritus, No rash All Other Systems Reviewed Negative Unless Noted: Yes Past [id number] Hx Patient Social History Alcohol Use: Denies Use Recreational Drug Use: No Smoking Status: Never a Smoker 2nd Hand Smoke Exposure: No Recent Foreign Travel: No Contact w/Someone Who Travel: No Recent Infectious Disease Expo: No Recent Hopitalizations: No Physical Abuse: No Sexual Abuse: No Mistreated: No Fear: No Immunizations Up To Date Tetanus Booster (TDap): Unknown Date of Influenza Vaccine: Aug 08, 2011 Seasonal Allergies Seasonal Allergies: No Past Medical History Surgeries: No Respiratory: No Cardiac: No Neurological: No Reproductive Disorders: Yes (PMB,PELVIC MASS) Sexually Transmitted Disease: No Genitourinary: No Gastrointestinal: No Musculoskeletal: No Endocrine: Yes Hypothyroidsim HEENT: No Cancer: No Psychosocial: Yes Anxiety Integumentary: No Blood Disorders: No Physical Exam Vital Signs Vital Signs - First Documented 04/02/19 09:30 Temp 99.0 Pulse 66 Resp 18 B/P (MAP) 184/92 (122) Pulse Ox 96 O2 Delivery Room Air Capillary Refill : Less Than 3 Seconds Height, Weight, BMI Height: 5'4.00" Weight: 218lbs. oz. 98.100357qw; BMI Method:Stated General Appearance: No Apparent Distress, Obese Eyes: Bilateral Eye PERRL, Bilateral Eye EOMI HEENT: PERRL/EOMI, TMs Normal, Other (Mild bilateral tonsilar enlargement. no facial swelling, sublingual/submental spaces soft. no trismus, normal phonation. Managing oral secretions. ) Neck: Normal Inspection; No Lymphadenopathy (L), No Lymphadenopathy (R) Respiratory: Lungs Clear, Normal Breath Sounds, No Accessory Muscle Use, No Respiratory Distress Cardiovascular: No Edema, No JVD, No Murmur, Normal Peripheral Pulses, Other (intermittent skipped/PVC beats) Gastrointestinal: Normal Bowel Sounds, No Pulsatile Mass, Non Tender, Soft Extremity: Normal Capillary Refill, Normal Range of Motion Neurologic/Psychiatric: Alert, Oriented x3, Normal Mood/Affect Skin: Normal Color, Warm/Dry Progress/Results/Core Measures Suspected Sepsis Recent Fever Within 48 Hours: No Infection Criteria Present: None New/Unexplained Altered Menta: No Sepsis Screen: No Definite Risk SIRS Temperature:99.0 Pulse: 66 Respiratory Rate: 18 Laboratory Tests 04/02/19 09:40: White Blood Count 9.5 Blood Pressure 184 /92 Mean: 122 Laboratory Tests 04/02/19 09:40: Creatinine 0.82, Platelet Count 273 Results/Orders Lab Results Laboratory Tests Test 04/02/19 09:40 Range/Units White Blood Count 9.5 4.3-11.0 10^3/uL Red Blood Count 4.71 4.35-5.85 10^6/uL Hemoglobin 13.7 11.5-16.0 G/DL Hematocrit 43 35-52 % Mean Corpuscular Volume 91 80-99 FL Mean Corpuscular Hemoglobin 29 25-34 PG Mean Corpuscular Hemoglobin Concent 32 32-36 G/DL Red Cell Distribution Width 13.0 10.0-14.5 % Platelet Count 273 130-400 10^3/uL Mean Platelet Volume 10.7 H 7.4-10.4 FL Neutrophils (%) (Auto) 71 42-75 % Lymphocytes (%) (Auto) 17 12-44 % Monocytes (%) (Auto) 10 0-12 % Eosinophils (%) (Auto) 2 0-10 % Basophils (%) (Auto) 0 0-10 % Neutrophils # (Auto) 6.8 1.8-7.8 X 10^3 Lymphocytes # (Auto) 1.6 1.0-4.0 X 10^3 Monocytes # (Auto) 0.9 0.0-1.0 X 10^3 Eosinophils # (Auto) 0.2 0.0-0.3 10^3/uL Basophils # (Auto) 0.0 0.0-0.1 10^3/uL Neutrophils % (Manual) 59 % Lymphocytes % (Manual) 19 % Monocytes % (Manual) 10 % Eosinophils % (Manual) 3 % Basophils % (Manual) 0 % Band Neutrophils 9 % Blood Morphology Comment NORMAL Sodium Level 141 135-145 MMOL/L Potassium Level 4.6 3.6-5.0 MMOL/L Chloride Level 101 98-107 MMOL/L Carbon Dioxide Level 24 21-32 MMOL/L Anion Gap 16 H 5-14 MMOL/L Blood Urea Nitrogen 10 7-18 MG/DL Creatinine 0.82 0.60-1.30 MG/DL Estimat Glomerular Filtration Rate > 60 BUN/Creatinine Ratio 12 Glucose Level 115 H 70-105 MG/DL Calcium Level 9.0 8.5-10.1 MG/DL Troponin T 10 <=10 NG/L My Orders Orders - DIMITRI MACHADO DO Cbc And Manual Diff (04/02/19 10:00) Basic Metabolic Panel (04/02/19 10:00) Troponin T (5/26/19 10:00) Ekg Tracing (04/02/19 09:38) Vital Signs/I&O 04/02/19 09:30 Temp 99.0 Pulse 66 Resp 18 B/P (MAP) 184/92 (122) Pulse Ox 96 O2 Delivery Room Air Capillary Refill : Less Than 3 Seconds Blood Pressure Mean: 122 Progress Note : Progress Note labs reassuring in setting of asymptomatic PVCs. History of hypothyroidism. States that TSH was checked in Dec with no changes to medications needed. Unable to check TSH here. Referred to Cardiology. ER return precautions given. Pt verbalized understanding. All questions answered. ECG EKG : Comment 09: NSR with frequent PVCs. No ST segment changes. Departure Impression Primary Impression: Upper respiratory infection Additional Impression: Premature ventricular beats Disposition: HOME, SELF-CARE Condition: Stable Departure-Patient Inst. Decision time for Depature: 10:31 Referrals: THOMPSON AGOSTO DO (PCP/Family) Primary Care Physician FLORA ELLIS MD Patient Instructions: Ventricular Premature Beats, Viral Upper Respiratory Infection, Adult (DC) Add. Discharge Instructions: Please read the attached handouts. You are having frequent preventricular contractions (PVCS) and periodically your heart goes into Bigeminy. Please follow up with the referred [facility] for continued evaluation. Return to the ER if you develop palpitations, chest pain, dizziness,weakness or any other concerns. All discharge instructions reviewed with patient and/or family. Voiced understanding. DIMITRI MACHADO DO April 02, 2019 10:33
[2019-04-02 10:45] VITALS: BP 147/88
== END 2019-04-02 10:44 | disposition home or self-care (01) ==
LOC: EDUNIT# 09:26 → ER FS 09:27
DX: J06.9 Acute upper respiratory infection, unspecified (principal); I49.3 Ventricular premature depolarization; E03.9 Hypothyroidism, unspecified; F41.9 Anxiety disorder, unspecified; Z88.0 Allergy status to penicillin; Z88.2 Allergy status to sulfonamides; Z87.448 Personal history of other diseases of urinary system
CPT/HCPCS: 36415; 80048; 84484; 85007; 85027; 93005

== ENCOUNTER → 2019-05-03 | Outpatient (CLI) | payer MEDICARE, OTHER ==
--- NOTE | 2019-05-04 13:55 | NUR ---
Pt reicieved definity for stress echo. The patient tolerated the procedure with no complaints
== END ==
LOC: CARD 11:44
PROVIDERS: ATTEND Internal Medicine Cardiovascular Disease
DX: R06.09 Other forms of dyspnea (principal); I49.3 Ventricular premature depolarization; I07.1 Rheumatic tricuspid insufficiency
CPT/HCPCS: 93306

== ENCOUNTER → 2021-05-05 | Outpatient (CLI) | payer MEDICARE, OTHER ==
[2021-05-05 19:16] LABS: CLARITY,URINE TURBID; COLOR,URINE YELLOW; GLUCOSE, URINE (UA) NEGATIVE (NEGATIVE); PROTEIN,URINE TRACE (NEGATIVE)
[2021-05-05 19:17] LABS: BACTERIA,URINE MODERATE /HPF; BILIRUBIN,URINE NEGATIVE (NEGATIVE); KETONES,URINE NEGATIVE (NEGATIVE); LEUKOCYTE ESTERASE ,URINE 2+ (NEGATIVE); NITRITE,URINE NEGATIVE (NEGATIVE); WBC,URINE TNTC /HPF
== END ==
LOC: LAB FS 16:07
PROVIDERS: ATTEND Internal Medicine
DX: R35.0 Frequency of micturition (principal)
CPT/HCPCS: 81000; 87088